=== PATIENT | male | born 1990 | race Caucasian/White ===

== ENCOUNTER 2018-09-19 13:47 | Emergency (ER) | payer OTHER ==
[~2018-09-19] VITALS: Ht 175.3 cm; Wt 79.5 kg
[2018-09-19] MEDS ORDERED: OLAN2.5T3 PO (14:18)
[2018-09-19] MEDS ORDERED: ARIP5TAB8 PO (14:18)
[2018-09-19] MEDS ORDERED: LORazepam 1 MG TABLET PO ONE (16:00)
[2018-09-19] MEDS ORDERED: HALOPERIDOL 5 MG TABLET PO ONE (16:00)
[2018-09-19 16:10] VITALS: BP 120/84
== END 2018-09-19 17:09 | disposition home or self-care (01) ==
LOC: EMS 13:48
DX: F41.9 Anxiety disorder, unspecified (principal); F20.9 Schizophrenia, unspecified; F17.210 Nicotine dependence, cigarettes, uncomplicated; F19.90 Other psychoactive substance use, unspecified, uncomplicated